=== PATIENT | male | born 1955 | race Caucasian/White ===

== ENCOUNTER 2023-06-08 08:00 | Outpatient (CLI) | payer MEDICARE, OTHER ==
--- NOTE | 2023-06-08 15:28 | XRAY Report ---
PROCEDURE: Finger(s) LT INDICATIONS: CONTUSION OF LEFT MIDDLE FINGER TECHNIQUE: AP hand, 2 views of the third finger(s) acquired. COMPARISON: None. FINDINGS: Bones: No fractures or dislocations. No suspicious bony lesions. Soft tissues: No suspicious soft tissue calcifications or masses. IMPRESSION: No acute bony abnormality. Reviewed by: Galdino Schofield MD on 06/08/2023 3:27 PM PDT Approved by: Galdino Schofield MD on 06/08/2023 3:27 PM PDT Station ID: [id number]
== END 2023-06-08 23:59 | disposition home or self-care (01) ==
LOC: DI.S 08:00
PROVIDERS: ATTEND Physician Assistant Medical
DX: S60.032A Contusion of left middle finger without damage to nail, initial encounter (principal)

== ENCOUNTER 2024-05-19 18:33 | Inpatient (IN) ==
[2024-05-19 18:52] LABS: BASOPHILS % (AUTO) 0.4 %; EOSINOPHILS # (AUTO) 0.2 10^3/uL (0.0-0.7); EOSINOPHILS % (AUTO) 2.1 %; HCT - HEMATOCRIT 42.5 % (42.0-52.0); LYMPHOCYTES # (AUTO) 2.8 10^3/uL (1.5-3.5); LYMPHOCYTES % (AUTO) 34.6 %; MEAN CORPUSCULAR HEMOGLOBIN 31.3 pg (27.0-31.0); MEAN CORPUSCULAR HGB CONC 32.9 g/dL (32.0-36.0); MEAN CORPUSCULAR VOLUME 94.9 fL (80.0-94.0); MEAN PLATELET VOLUME 10.4 fL (7.4-11.4); MONOCYTES % (AUTO) 11.9 %; NEUTROPHILS # (AUTO) 4.1 10^3/uL (1.5-6.6); NEUTROPHILS % (AUTO) 50.5 %; PLT - PLATELET COUNT 237 10^3/uL (130-450); RED BLOOD COUNT 4.48 10^6/uL (4.70-6.10); RED CELL DISTRIBUTION WIDTH 12.6 % (12.0-15.0); WHITE BLOOD COUNT 8.1 x10^3/uL (4.8-10.8)
[2024-05-19 18:57] LABS: PT - PROTHROMBIN TIME 11.4 secs (9.9-12.6)
[2024-05-19 19:04] LABS: PARTIAL THROMBOPLASTIN TIME 30.1 secs (24.9-33.3)
[2024-05-19 19:09] LABS: ALBUMIN 4.3 g/dL (3.2-5.5); ALBUMIN/GLOBULIN RATIO 1.7 (1.0-2.2); BILIRUBIN,TOTAL 0.5 mg/dL (0.2-1.0); CALCIUM 9.6 mg/dL (8.5-10.3); CREATININE 0.8 mg/dL (0.6-1.3); POTASSIUM 3.4 mmol/L (3.5-4.5); TOTAL PROTEIN 6.9 g/dL (6.4-8.9)
[2024-05-19] MEDS ORDERED: iohexoL-300 100 ML VIAL ONE (19:11)
--- NOTE | 2024-05-19 19:37 | ED Physician Documentation ---
History of Present Illness Stated complaint Stated Complaint: FACIAL NUMBNESS/APHASIA Chief complaint Chief Complaint: Neuro History obtained from History obtained from: Patient History of Present Illness Timing: Prior to arrival Additonal information Additional information: Patient is a 68-year-old male presenting to the emergency department with sudden onset of aphasia and numbness to face and digits 2 and 3 on his right hand. Symptoms only lasted for a few seconds about that time patient had difficulty talking to his . Patient took aspirin after EMS was called. Patient notes symptoms resolved before EMS even arrived. He has no history of TIAs or strokes. He is not on any blood thinners at home. He had no headache or vision changes no weakness to extremities no head trauma. No chest pain no shortness of breath no persistent difficulty finding words no persistent tingling at this time. Symptoms occurred while patient was eating a piece of cheese at home and his was sitting next to them. Meds/Allgy Allergies Allergies Allergy/AdvReac Type Severity Reaction Status Date / Time Penicillins Allergy Unknown Verified 05/19/24 18:44 [facility] Social History Social History Do you feel safe in your home environment?: Yes Suffered physical, verbal, emotional, or financial abuse?: No Exam Constitutional normal general appearance and no apparent distress HENMT normocephalic, head/scalp atraumatic and hearing grossly normal bilaterally Eyes PERRL, EOMs intact bilaterally and conjunctivae normal No signs of nystagmus, PERRLA, Neck/C-Spine visual inspection normal Lymph no lymphadenopathy noted Chest inspection of chest normal Respiratory breath sounds equal bilaterally, normal respiratory effort and clear to auscultation bilaterally Cardiovascular normal heart rate noted, regular rhythm noted, no gallop and no rub Gastrointestinal abdomen normal to inspection Extremities normal to inspection 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 and no focal motor deficit noted No focal deficits, patient moving all extremities without difficulty, GCS 15, Sensation intact in upper and lower extremities, Psychiatry oriented x3 Skin skin color normal and no rash Results Vitals Vitals: Vital Signs - 24 hr 05/19/24 18:45 05/19/24 19:23 05/19/24 19:32 Temperature 37.3 C Temperature Source Temporal Artery Scan Pulse Rate 56 L 50 L Respiratory Rate 18 16 Blood Pressure 178/104 H 147/83 H O2 Saturation 98 98 O2 Source Room air Room air Pain Intensity 0 0 05/19/24 21:00 Temperature Temperature Source Pulse Rate 45 L Respiratory Rate 16 Blood Pressure 150/89 H O2 Saturation 98 O2 Source Room air Pain Intensity 0 Oxygen O2 Source Room air EKG (time done) 1853: EKG releavant findings:: EKG personally interpreted by author of this note. Relevant findings are: Rate: Rate (enter#) (46) Rhythm: Sinus bradycardia [place]: Normal Intervals: Normal AR QRS: QRS normal Ischemia: Normal ST segments Compare to prior EKG: Unchanged from prior EKG and Changed from prior EKG Computer interpretation: Agree with computer Labs Labs: Laboratory Tests 05/19/24 18:44 WBC 8.1 RBC 4.48 L Hgb 14.0 Hct 42.5 MCV 94.9 H MCH 31.3 H MCHC 32.9 RDW 12.6 Plt Count 237 MPV 10.4 Neut # (Auto) 4.1 Lymph # (Auto) 2.8 [place] # (Auto) 1.0 Eos # (Auto) 0.2 Baso # (Auto) 0.0 Absolute Nucleated RBC 0.00 Nucleated RBC % 0.0 PT 11.4 INR 1.0 APTT 30.1 Sodium 138 Potassium 3.4 L Chloride 102 Carbon Dioxide 28 Anion Gap 8.0 BUN 13 Creatinine 0.8 Estimated GFR (MDRD) 96 Glucose 100 Calcium 9.6 Total Bilirubin 0.5 AST 17 ALT 19 Alkaline Phosphatase 26 L Troponin I High Sens 10.0 Total Protein 6.9 Albumin 4.3 Globulin 2.6 Albumin/Globulin Ratio 1.7 Rads (name of study) CT head: Relevant Findings:: Final report received and EMP independent interpretation of test Interpretation: No acute intracranial findings PD Medical Decision Making ED course Complexity details: reviewed old records and reviewed results ED course: Patient is a 68-year-old male presenting to the emergency department with right- sided facial numbness and second and third digit patient finger numbness. Symptoms only lasted for about 5 seconds but during that time patient had difficulty speaking and impending sense of doom symptoms. Patient has no history of stroke no history of TIA does have history of hypertension and hyperlipidemia. Patient took 81 of aspirin prior to EMS picking him up. BS was 128 on arrival. Vital stable here in the ED. Physical exam shows GCS 15 no focal deficits answering questions appropriately no slurred speech moving all extremities strength intact in upper and lower extremities bfjadl-hc-[id number] test intact CT head: No acute intracranial pathology. CTA head and neck: No significant intracranial arterial abnormality is seen. No significant abnormality is seen within the arteries of the neck. Patient updated on reassuring findings however this is his sort of TIA given concerning symptoms and concerning workup patient tried to be admitted to hospital for observation status for echo and MRI. Discussed case with Dr. Gillespie who is agreeable with this plan. patient will be admitted for TIA work up overnight monitoring. Discharge Plan Discharge Print Language: [place] Stand Alone Forms: PCP List
[2024-05-19] MEDS: POTASSIUM BICARB 25 MEQ TABLET PO STA (20:31)
[2024-05-19] MEDS: iohexoL-300 100 ML VIAL IVP ONE (21:24)
--- NOTE | 2024-05-19 21:34 | CT Report ---
PROCEDURE: CT Head WO INDICATIONS: stroke/tia TECHNIQUE: Noncontrast 4.5 mm thick angled axial sections acquired from the foramen magnum to the vertex. For r adiation dose reduction, the following was used: automated exposure control, adjustment of mA and/or kV according to patient size. COMPARISON: None. FINDINGS: Image quality: Excellent. CSF spaces: Basal cisterns are patent. No extra-axial fluid collections. Ventricles are normal in size and shape. Brain: No midline shift. No intracranial masses or hemorrhage. [place]-white matter interface is norm al. Skull and face: Calvarium and visualized facial bones are intact, without suspicious lesions. Sinuses: Visualized sinuses and mastoids are clear. IMPRESSION: No acute intracranial pathology. Reviewed by: Omer Andrade MD on 05/19/2024 9:33 PM PDT Approved by: Omer Andrade MD on 05/19/2024 9:33 PM PDT Station ID: [id number]
--- NOTE | 2024-05-19 21:38 | CT Report ---
PROCEDURE: CT Angio Head/Neck INDICATIONS: TIA work up TECHNIQUE: After the administration of intravenous contrast, 1 mm thick sections acquired from the aortic arch t hrough the [place]. 3-dimensional tghtllg-rslxikwkl-dhgdokloyz (MIP) and/or volume renderin g reformats were acquired of the central intracranial vasculature and neck separately. For radiation dose reduction, the following was used: automated exposure control, adjustment of mA and/or kV acco rding to patient size. CONTRAST: 100 ML OMNI 300 COMPARISON: None. FINDINGS: Image quality: Diagnostic. HEAD CT: CSF Spaces: Basal cisterns are patent. No extra-axial fluid collections. Ventricles are normal in size and shape. Brain: No significant abnormality is seen for scanning technique. Skull and face: Calvarium and visualized facial bones appear intact, without suspicious lesions. Sinuses: Visualized sinuses and mastoids are clear. HEAD CT ANGIOGRAPHY: Anterior circulation: Intracranial internal carotid arteries are normal in size and flow. The flow within the paired anterior cerebral arteries is normal and symmetric. The flow within the middle cer ebral arteries is normal and symmetric. The anterior communicating artery is seen. No aneurysms are seen. Posterior circulation: Visualized portions of the vertebral arteries demonstrate normal caliber, and join to form a normal appearing basilar artery. Flow within the posterior cerebral arteries is norm al and symmetric. No aneurysms are seen. NECK CT ANGIOGRAPHY: Carotid system: The great vessels demonstrate a conventional anatomy as they arise from the aortic a rch. The origins of the common carotid arteries appear patent. The common carotid arteries demonstr ate normal caliber and courses. The bifurcation regions are both widely patent. The internal caroti d arteries demonstrate normal calibers and courses. Posterior circulation: The origins of the vertebral arteries both appear widely patent. The more noyola perior extracranial portions of both vertebral arteries also demonstrate normal courses and calibers. They join to form a normal appearing basilar artery. Soft tissues: Visualized neck soft tissues demonstrate no suspicious abnormalities. Bones: No suspicious bony lesions. Visualized cervical spine appears normally aligned. IMPRESSION: No significant intracranial arterial abnormality is seen. No significant abnormality is seen within the arteries of the neck. The estimate of stenosis included in the report of the imaging study was calculated using the NASCET method Reviewed by: Omer Andrade MD on 05/19/2024 9:37 PM PDT Approved by: Omer Andrade MD on 05/19/2024 9:37 PM PDT Station ID: [id number]
[2024-05-19] MEDS ORDERED: ACETAMINOPHEN 325 MG TABLET PO PRN (22:08)
[2024-05-19] MEDS ORDERED: SODIUM CHLORIDE FLUSH 0.9% 10 ML SYRINGE IVP PRN (22:08)
[2024-05-19] MEDS ORDERED: ONDANSETRON 4 MG/2 ML VIAL IVP PRN (22:08)
--- NOTE | 2024-05-19 22:46 | HISTORY & PHYSICAL EXAMINATION ---
Chief Complaint Chief Complaint Chief Complaint: Aphasia , facial numbness History of Present Illness History of Present Illness HPI Comment/Other: 68 y old male with PMH HTN, hyperlipidemia BIBA due to aphasia, numbness in right side of face and fingers which lasted for few seconds. EMS was called. Pt was at his baseline upon EMS arrival. Aspirin was given and pateint was brought to ER. On Arrival to ER, NIH 0 Denies CEJA, chest pain, sob, nausea, vomiting, diarrhea, constipation or symptoms CT head and CTA head and neck showed no acute abnormalities Pt is admitted for TIA Review of Systems Status of ROS: 10 or more systems reviewed and unremarkable except as noted in history and below PFSH Active Problems All Active Problems (Updated 05/19/24 @ 22:14 by Gia Merchant PA-C) TIA (transient ischemic attack) (Acute) Social History Social History Do you feel safe in your home environment?: Yes Suffered physical, verbal, emotional, or financial abuse?: No Meds/Allgy Allergies Allergies Allergy/AdvReac Type Severity Reaction Status Date / Time Penicillins Allergy Unknown Verified 05/19/24 18:44 Exam Constitutional normal general appearance HENMT normocephalic Eyes PERRL Neck/C-Spine visual inspection normal Chest inspection of chest normal Respiratory breath sounds equal bilaterally Cardiovascular normal heart rate noted Gastrointestinal abdomen normal to inspection Extremities normal to inspection Neurology no focal motor deficit noted Skin no rash Conclusion/Plan Problem List (1) TIA (transient ischemic attack): Plan: A: TIA Hypokalemia HTN Hyperlipidemia Plan: Admit to med surg with tele Cardiac monitoring Echo MRI brain WO contrast Start aspirin 325 mg qd Lipitor 80 mh qd Check fasting lipid panel and Hba1c NPO ST/PT/OT Neuro checks DVT prophylaxic: SCD Full code Pt is admitted as inpatient as more than 2 midnight stay is expecetd Lab Results 05/19/24 18:44 05/19/24 18:44
[2024-05-20] MEDS: SODIUM CHLORIDE FLUSH 0.9% 10 ML SYRINGE IVP SCH (01:02)
[2024-05-20] MEDS: hydrOXYzine PAMOATE 25 MG CAPSULE PO STA (01:02)
[2024-05-20 05:52] LABS: BASOPHILS % (AUTO) 0.3 %; EOSINOPHILS # (AUTO) 0.1 10^3/uL (0.0-0.7); EOSINOPHILS % (AUTO) 2.2 %; HCT - HEMATOCRIT 41.3 % (42.0-52.0); HGB - HEMOGLOBIN 13.9 g/dL (14.0-18.0); LYMPHOCYTES # (AUTO) 2.3 10^3/uL (1.5-3.5); LYMPHOCYTES % (AUTO) 39.6 %; MEAN CORPUSCULAR HEMOGLOBIN 31.4 pg (27.0-31.0); MEAN CORPUSCULAR HGB CONC 33.7 g/dL (32.0-36.0); MEAN CORPUSCULAR VOLUME 93.2 fL (80.0-94.0); MEAN PLATELET VOLUME 10.3 fL (7.4-11.4); MONOCYTES # (AUTO) 0.8 10^3/uL (0.0-1.0); MONOCYTES % (AUTO) 13.9 %; NEUTROPHILS # (AUTO) 2.5 10^3/uL (1.5-6.6); NEUTROPHILS % (AUTO) 43.5 %; PLT - PLATELET COUNT 204 10^3/uL (130-450); RED BLOOD COUNT 4.43 10^6/uL (4.70-6.10); RED CELL DISTRIBUTION WIDTH 12.8 % (12.0-15.0); WHITE BLOOD COUNT 5.8 x10^3/uL (4.8-10.8)
[2024-05-20 06:12] LABS: CHOLESTEROL 219 mg/dL; HDL CHOLESTEROL 74 mg/dL; LDL CHOLESTEROL,CALCULATED 121 mg/dL; LDL/HDL RATIO 1.6 (<3.6); TRIGLYCERIDES 119 mg/dL; VLDL CHOLESTEROL 24 mg/dL
[2024-05-20 06:13] LABS: ALBUMIN 4.1 g/dL (3.2-5.5); ALBUMIN/GLOBULIN RATIO 1.7 (1.0-2.2); BILIRUBIN,TOTAL 0.7 mg/dL (0.2-1.0); CALCIUM 9.3 mg/dL (8.5-10.3); CREATININE 0.7 mg/dL (0.6-1.3); TOTAL PROTEIN 6.5 g/dL (6.4-8.9)
[2024-05-20] MEDS: ATORVASTATIN 40 MG TABLET PO SCH (08:39)
[2024-05-20] MEDS: ASPIRIN 325 MG TABLET PO SCH (08:39)
[2024-05-20] MEDS: POTASSIUM CHLORIDE 20 MEQ TABLET PO ONE (10:34)
--- NOTE | 2024-05-20 12:01 | PROVIDER PROGRESS NOTE ---
Subjective Prog Note Date Prog Note Date: 05/20/24 Subjective Pt reports feeling: No change Current Medications Current Medications Current Medications: Current Medications Generic Name Dose Route Start Last Admin Trade Name Miguelq PRN Reason Stop Dose Admin Acetaminophen 650 mg 05/19/24 22:08 Acetaminophen 325 Mg Tablet PO Q4HR PRN Pain 1 to 4, or Fever Aspirin 325 mg 05/20/24 09:00 05/20/24 08:39 Aspirin 325 Mg Tablet PO 325 mg DAILY HERNANDEZ Administration Atorvastatin Calcium 80 mg 05/20/24 09:00 05/20/24 08:39 Atorvastatin 40 Mg Tablet PO 80 mg DAILY HERNANDEZ Administration Ondansetron HCl 4 mg 05/19/24 22:08 Ondansetron 4 Mg/2 Ml Vial IVP Q6HR PRN Nausea / Vomiting Sodium Chloride 10 ml 05/19/24 22:08 Sodium Chloride Flush 0.9% 10 Ml Syringe IVP PRN PRN NEEDED PER PROVIDER ORDERS Sodium Chloride 10 ml 05/20/24 01:00 05/20/24 08:41 Sodium Chloride Flush 0.9% 10 Ml Syringe IVP 10 ml 0100,0900,1700 HERNANDEZ Administration Objective Vital Signs/Intake & Output Reviewed Vital Signs: Yes Vital Signs: Vital Signs x48h Temp Pulse Resp BP Pulse Ox 05/20/24 11:45 36.7 C 49 L 18 162/85 H 97 05/20/24 07:51 36.5 C 46 L 18 166/98 H 98 05/20/24 05:34 36.8 C 44 L 16 158/91 H 99 Intake & Output: Intake & Output 05/17/24 05/18/24 05/19/24 05/20/24 23:59 23:59 23:59 23:59 Intake Total 720 / 720 Balance 720 / 720 Weight (kg) 92.5 kg Objective General Appearance: positive No acute distress and Alert Eyes Bilateral: positive Normal inspection and PERRL ENT: positive ENT inspection nml Neck: positive Nml inspection Respiratory: positive Chest non-tender and No respiratory distress Cardiovascular: positive Regular rate & rhythm Abdomen: positive Non-tender Skin: positive Color nml Extremities: positive Non-tender Neurologic/Psychiatric: positive Oriented x3 Lab Results 05/20/24 05:00 05/20/24 05:18 Other Labs: Lab Results x24hrs 05/20/24 05/20/2425 Range/Units 05:18 05:00 18:44 WBC 5.8 8.1 (4.8-10.8) x10^3/uL RBC 4.43 L 4.48 L (4.70-6.10) 10^6/uL Hgb 13.9 L 14.0 (14.0-18.0) g/dL Hct 41.3 L 42.5 (42.0-52.0) % MCV 93.2 94.9 H (80.0-94.0) fL MCH 31.4 H 31.3 H (27.0-31.0) pg MCHC 33.7 32.9 (32.0-36.0) g/dL RDW 12.8 12.6 (12.0-15.0) % Plt Count 204 237 (130-450) 10^3/uL MPV 10.3 10.4 (7.4-11.4) fL Neut # (Auto) 2.5 4.1 (1.5-6.6) 10^3/uL Lymph # (Auto) 2.3 2.8 (1.5-3.5) 10^3/uL [place] # (Auto) 0.8 1.0 (0.0-1.0) 10^3/uL Eos # (Auto) 0.1 0.2 (0.0-0.7) 10^3/uL Baso # (Auto) 0.0 0.0 (0.0-0.1) 10^3/uL Absolute Nucleated RBC 0.00 0.00 x10^3/uL Nucleated RBC % 0.0 0.0 /100WBC PT 11.4 (9.9-12.6) secs INR 1.0 (0.8-1.2) APTT 30.1 (24.9-33.3) secs Sodium 141 138 (135-145) mmol/L Potassium 3.0 L 3.4 L (3.5-4.5) mmol/L Chloride 105 102 (101-111) mmol/L Carbon Dioxide 25 28 (21-32) mmol/L Anion Gap 11.0 8.0 (6-13) BUN 11 13 (6-20) mg/dL Creatinine 0.7 0.8 (0.6-1.3) mg/dL Estimated GFR (MDRD) 112 96 (>89) Glucose 123 H 100 (74-104) mg/dL Calcium 9.3 9.6 (8.5-10.3) mg/dL Magnesium 2.1 (1.7-2.3) mg/dL Total Bilirubin 0.7 0.5 (0.2-1.0) mg/dL AST 15 17 (10-42) IU/L ALT 18 19 (10-60) IU/L Alkaline Phosphatase 22 L 26 L (42-121) IU/L Troponin I High Sens 10.0 (2.3-19.7) ng/L Total Protein 6.5 6.9 (6.4-8.9) g/dL Albumin 4.1 4.3 (3.2-5.5) g/dL Globulin 2.4 2.6 (2.1-4.2) g/dL Albumin/Globulin Ratio 1.7 1.7 (1.0-2.2) Triglycerides 119 mg/dL Cholesterol 219 H ( - 200) mg/dL LDL Cholesterol, Calc 121 ( - 129) mg/dL VLDL Cholesterol 24 mg/dL HDL Cholesterol 74 (60 - ) mg/dL LDL/HDL Ratio 1.6 (<3.6) Cholesterol/HDL Ratio 3.0 (<5.0) Assessment/Plan Problem List (1) TIA (transient ischemic attack): Impression: Symptoms resolved prior to presentation in the ER Reports history of childhood murmur Continue telemetry Check echo I am holding his blood pressure medicines for now, likely restart in a.m.
--- NOTE | 2024-05-20 12:14 | PHARMACY PROGRESS NOTE ---
Best Possible Medication History Admit Date and Time: 05/19/242207 Home Medications Medication Instructions Recorded Confirmed Type amlodipine 10 mg tablet 10 mg PO DAILY 05/20/24 05/20/24 History atorvastatin 40 mg tablet 40 mg PO DAILY 05/20/24 05/20/24 History carvedilol 6.25 mg tablet 6.25 mg PO BID 05/20/24 05/20/24 History losartan 100 1 tab PO DAILY 05/20/24 05/20/24 History mg-hydrochlorothiazide 25 mg tablet trazodone 50 mg tablet 25 - 50 mg PO QPM PRN sleep 05/20/24 05/20/24 History Processed by: Pharmacy Medications reviewed in ED?: No Medication History completed: Yes Patient Interview: Completed Secondary Source(s): Pharmacy records and Insurance records [facility] Statement: As the person ultimately responsible for medication therapy, providers are able to order a medication from an existing home medication list in [facility] via the "Reconcile Routine" prior to Confirmation of that medication by program support assistant. Such practice is discouraged except when the physician, in their clinical judgment, deems that a medical need exists for a medication without regard to previous use.
[2024-05-20 13:12] LABS: ESTIMATED AVERAGE GLUCOSE 128 mg/dL (70-100); HEMOGLOBIN A1c% 6.1 % (4.27-6.07)
[2024-05-21 08:30] VITALS: BP 160/95; TEMP 97.9; O2SAT 92
[2024-05-21 10:22] LABS: BASOPHILS % (AUTO) 0.4 %; EOSINOPHILS # (AUTO) 0.1 10^3/uL (0.0-0.7); EOSINOPHILS % (AUTO) 0.7 %; HCT - HEMATOCRIT 43.7 % (42.0-52.0); HGB - HEMOGLOBIN 14.6 g/dL (14.0-18.0); LYMPHOCYTES # (AUTO) 1.4 10^3/uL (1.5-3.5); LYMPHOCYTES % (AUTO) 19.6 %; MEAN CORPUSCULAR HEMOGLOBIN 31.5 pg (27.0-31.0); MEAN CORPUSCULAR HGB CONC 33.4 g/dL (32.0-36.0); MEAN CORPUSCULAR VOLUME 94.4 fL (80.0-94.0); MEAN PLATELET VOLUME 10.1 fL (7.4-11.4); MONOCYTES # (AUTO) 0.9 10^3/uL (0.0-1.0); MONOCYTES % (AUTO) 12.1 %; NEUTROPHILS # (AUTO) 4.7 10^3/uL (1.5-6.6); NEUTROPHILS % (AUTO) 66.9 %; PLT - PLATELET COUNT 198 10^3/uL (130-450); RED BLOOD COUNT 4.63 10^6/uL (4.70-6.10); RED CELL DISTRIBUTION WIDTH 12.9 % (12.0-15.0)
[2024-05-21 10:38] LABS: CALCIUM 9.2 mg/dL (8.5-10.3); CREATININE 0.9 mg/dL (0.6-1.3); POTASSIUM 3.8 mmol/L (3.5-4.5)
--- NOTE | 2024-05-21 12:30 | MRI Report ---
PROCEDURE: MRI Brain WO INDICATIONS: TIA TECHNIQUE: Noncontrast axial T1 spin echo, axial T2 fast spin echo, sagittal and axial FLAIR, coronal T2 fast sp in echo, axial gradient echo, axial diffusion and ADC through the brain. COMPARISON: 05/19/2024 FINDINGS: Image quality: Excellent. CSF Spaces: Basal cisterns are patent. No extra-axial fluid collections. Ventricles are normal in size and shape. Brain: No intracranial masses or hemorrhage. [place]/white matter interface is normal. Brainstem appe ars normal. Diffusion-weighted images demonstrate no acute ischemic insult. No chronic ischemic ins ults. Normal intravascular flow voids are present. Leukoaraiosis, commonly caused by chronic small vessel ischemic disease. Age-related volume loss. Skull and face: Calvarium has normal marrow signal. Orbits appear normal. Sinuses: Sinuses and mastoids are clear. IMPRESSION: No acute intracranial process. Reviewed by: Omer Andrade MD on 05/21/2024 12:29 PM PDT Approved by: Omer Andrade MD on 05/21/2024 12:29 PM PDT Station ID: [id number]
--- NOTE | 2024-05-21 14:02 | Discharge Summary ---
Discharge Summary Admit Date: 05/19/24 Discharge Date: 05/21/24 Discharging Provider: Nadir Edwards NP Primary Care Provider: Michael Cabral Code Status: Attempt Resuscitation DIAGNOSES Admission Diagnoses: TIA Hypokalemia Hypertension Hyperlipidemia Discharge Diagnoses with Status of Each Condition: TIAresolved Hypokalemiaresolved Hypertensionchronic Hyperlipidemiachronic HPI History of Present Illness: 68 y old male with PMH HTN, hyperlipidemia BIBA due to aphasia, numbness in right side of face and fingers which lasted for few seconds. EMS was called. Pt was at his baseline upon EMS arrival. Aspirin was given and pateint was brought to ER. On Arrival to ER, NIH 0 Denies CEJA, chest pain, sob, nausea, vomiting, diarrhea, constipation or symptoms CT head and CTA head and neck showed no acute abnormalities Pt is admitted for TIA HOSPITAL COURSE Hospital Course: He was admitted into the hospital and underwent MRI which was negative for any acute findings. His symptoms had resolved prior to admission. Echocardiogram not available over the weekend, so he was discharged home and instructed to follow-up with his primary care provider regarding echocardiogram. He was also noted that he had an A1c of 6.1. [place] to follow-up with his PCP regarding this ALLERGIES Allergies Allergy/AdvReac Type Severity Reaction Status Date / Time Penicillins Allergy Unknown Verified 05/19/24 18:44 MEDICATIONS Ambulatory Orders Medication Instructions Recorded Confirmed amlodipine 10 mg tablet 10 mg PO DAILY 05/20/24 05/20/24 atorvastatin 40 mg tablet 40 mg PO DAILY 05/20/24 05/20/24 carvedilol 6.25 mg tablet 6.25 mg PO BID 05/20/24 05/20/24 losartan 100 1 tab PO DAILY 05/20/24 05/20/24 mg-hydrochlorothiazide 25 mg tablet trazodone 50 mg tablet 25 - 50 mg PO QPM PRN sleep 05/20/24 05/20/24 aspirin 325 mg tablet 325 mg PO DAILY 30 days #30 tabs 05/21/24 atorvastatin 40 mg tablet 80 mg (2 x 40 mg) PO DAILY 30 days 05/21/24 #60 tabs PHYSICAL EXAM AT DISCHARGE General Appearance: positive No acute distress and Alert Eyes Bilateral: positive Normal inspection and PERRL ENT: positive ENT inspection nml and Pharynx nml Neck: positive Nml inspection Respiratory: positive Chest non-tender Cardiovascular: positive Regular rate & rhythm Peripheral Pulses: positive 2+ Abdomen: positive Non-tender Back: positive Nml inspection Skin: positive Color nml Extremities: positive Non-tender Neurologic/Psychiatric: positive Oriented x3 LABS 05/21/24 10:17 05/21/24 10:17 FOLLOW UP Follow Up: With PCP TIME SPENT Time Spent in Discharge (Minutes): 25 Discharge Plan Discharge Patient Disposition: Home, Self Care Condition: Stable Medically Cleared Date:: 05/21/24 Prescriptions: New aspirin 325 mg Tablet 325 mg PO DAILY 30 Days Qty: 30 0RF atorvastatin 40 mg Tablet 80 mg PO DAILY 30 Days Qty: 60 0RF Continued atorvastatin 40 mg tablet 40 mg PO DAILY Patient Comments: take 1 tablet by mouth once daily carvedilol 6.25 mg tablet 6.25 mg PO BID losartan-hydrochlorothiazide 100-25 mg tablet 1 tab PO DAILY Patient Comments: take 1 tablet by mouth once daily amlodipine 10 mg tablet 10 mg PO DAILY trazodone 50 mg tablet 25 - 50 mg PO QPM PRN (Reason: sleep) Activity Restrictions: Activity as Tolerated Diet: Regular Health Concerns: You came into the hospital because you had strokelike symptoms. The symptoms resolved prior to your presentation to the ER. You were held in the hospital so we could watch your heart rhythm and so you could undergo MRI of your brain. Your MRI did not show any ongoing damage, so this is likely at most a transient ischemic attack. I am sending you home with a new prescription for aspirin 325 mg p.o. daily and atorvastatin 80 mg p.o. daily. These drugs help prevent recurrent stroke and TIA. We do not have echocardiogram available today, I would highly suggest that you have 1 performed. Your primary care provider office can order this for you, we have reached out to them to request this. Please follow-up with your primary care provider as soon as you can set up an appointment for ongoing management of your medication regimen Print Language: Maltese Patient Instructions: TIA Stand Alone Forms: PCP List Follow-up Care: MICHAEL CABRAL MD [Primary Care Provider] -
== END 2024-05-21 15:00 | disposition home or self-care (01) | DRG 69 ==
LOC: EDBD → ED 18:33 → MS2 22:08
PROVIDERS: ADMIT Internal Medicine; ATTEND Internal Medicine